=== PATIENT | male | born 1945 | race Two or more races ===

== ENCOUNTER → 2022-11-18 | Outpatient (CLI) | payer MEDICARE ==
[~2022-11-18] VITALS: Ht 167.6 cm; Wt 78.0 kg
[~2022-11-18] MED LIST: ADENOSINE 66 MG in GIVE UN-DILUTED 0 ML IV ONE
== END | disposition home or self-care (01) ==
LOC: XYW 08:40
PROVIDERS: ATTEND Specialist
DX: R07.89 Other chest pain (principal)
CPT/HCPCS: 78452; 93017; A9500; J0153